=== PATIENT | female | born 1970 | race Caucasian/White ===

== ENCOUNTER 2017-01-23 12:07 | Outpatient (CLI) | payer OTHER ==
--- NOTE | 2017-01-23 12:57 | DIAGNOSTIC IMAGING REPORT ---
PROCEDURE: XR ANKLE 3 OR 4 VIEWS - RIGHT INDICATION: ANKLE PAIN TECHNIQUE: Four views. COMPARISON: None. FINDINGS: Osseous structures and joint spaces are normal. IMPRESSION: 1. Normal right ankle.
--- NOTE | 2017-01-23 12:58 | DIAGNOSTIC IMAGING REPORT ---
PROCEDURE: XR FOOT 3 VIEWS - RIGHT INDICATION: ANKLE PAIN TECHNIQUE: Three views. COMPARISON: None. FINDINGS: Osseous structures and joint spaces are normal. IMPRESSION: 1. Normal right foot.
== END 2017-01-23 23:00 | disposition home or self-care (01) ==
LOC: XR SRH 12:07
DX: M79.671 Pain in right foot (principal); M25.571 Pain in right ankle and joints of right foot